=== PATIENT | male | born 1985 | race African-American/Black ===

== ENCOUNTER 2019-03-09 02:24 | Emergency (ER) | payer OTHER ==
[~2019-03-09] VITALS: Ht 172.7 cm; Wt 83.9 kg
[~2019-03-09 02:24] MED LIST: IBUPROFEN 600600 M1 PO; VALIUM5 MG PO
[2019-03-09 04:08] VITALS: BP 143/96
== END 2019-03-09 04:08 | disposition home or self-care (01) ==
LOC: ER 02:24
DX: S01.81XA Laceration without foreign body of other part of head, initial encounter (principal); Z88.0 Allergy status to penicillin; W26.8XXA Contact with other sharp object(s), not elsewhere classified, initial encounter; Y93.89 Activity, other specified; Y92.89 Other specified places as the place of occurrence of the external cause; Y99.8 Other external cause status